=== PATIENT | female | born 1970 | race Caucasian/White ===

== ENCOUNTER 2017-11-05 21:11 | Emergency (ER) | payer OTHER ==
[2017-11-05 21:24] VITALS: BP 129/81
[2017-11-05] MEDS ORDERED: Ondansetron TAB* 4 MG PO PRN (21:46)
[2017-11-05] MEDS ORDERED: Ondansetron TAB* 4 MG PO ONE (21:51)
--- NOTE | 2017-11-05 21:52 | UC ---
Abdominal Pain Female HPI - HPI Summary HPI Summary: 47 yo WF c/o right sided mid abd pain radiating at times to the epigastrium x 3 days associated with nausea and chills and worsening post-pradially. Has h/o GB disease in the family- daughter had cholecystectomy at age 28. 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 R ankle cyst removed Jun 2012. cataract sugery bilateral eyes - Family History Known Family History: Positive: Hypertension - Social History Alcohol Use: None Substance Use Type: None Smoking Status (MU): Current Every Day Smoker Type: Cigarettes Amount Used/How Often: 3/4 PPD When Did the Patient Quit Smoking/Using Tobacco: 3/4 PACK/DAY Review of Systems Constitutional: Chills Skin: Negative Eyes: Negative ENT: Negative Respiratory: Negative Cardiovascular: Negative Gastrointestinal: Abdominal Pain, Nausea Genitourinary: Negative Motor: Negative Neurovascular: Negative Musculoskeletal: Negative Neurological: Negative Psychological: Negative Is Patient Immunocompromised?: No All Other Systems Reviewed And Are Negative: Yes Physical Exam Triage Information Reviewed: Yes Appearance: Well-Nourished Vital Signs: Initial Vital Signs Temp 36.4 C 11/05/17 21:16 Pulse 80 11/05/17 21:16 Resp 16 11/05/17 21:16 BP 129/81 11/05/17 21:16 Pulse Ox 100 11/05/17 21:16 Eye Exam: Normal ENT Exam: Normal Dental Exam: Normal Neck exam: Normal Neck: Positive: 1 Respiratory Exam: Normal Cardiovascular Exam: Normal Abdomen Description: Positive: Soft, Other: - TTP right mid-abd. Negative: CVA Tenderness (R), Distended, Guarding Musculoskeletal Exam: Normal Neurological Exam: Normal Psychological Exam: Normal Skin Exam: Normal Abd Pain Female Course/Dx - Course Course Of Treatment: pt to return to UC for RUQ UC tomorrow for GB eval - Differential Dx/Diagnosis Provider Diagnoses: Choledocholithiasis Discharge - Discharge Plan Condition: Stable Disposition: HOME Prescriptions: Ondansetron TAB* [Zofran 4 MG Tab*] 4 mg PO Q6H PRN 5 Days #20 tab PRN Reason: Nausea Patient Education Materials: Cholecystitis (ED) Referrals: Jorge Duran MD [Primary Care Provider] - Additional Instructions: Can come back to urgent care tomorrow for abdominal ultrasound
[2017-11-05] MEDS ORDERED: Ondansetron ODT TAB* 4 MG ONE (21:55)
== END 2017-11-05 21:50 | disposition home or self-care (01) ==
LOC: UCEAST 21:11
DX: K80.50 Calculus of bile duct without cholangitis or cholecystitis without obstruction (principal); G43.909 Migraine, unspecified, not intractable, without status migrainosus; Z90.710 Acquired absence of both cervix and uterus; F17.210 Nicotine dependence, cigarettes, uncomplicated
CPT/HCPCS: 99212; A9270-GY; G0463

== ENCOUNTER 2017-11-06 12:40 | Emergency (ER) | payer OTHER ==
[2017-11-06] MEDS ORDERED: Morphine INJ* 2 MG/ML 1 ML CARPUJECT IV ONE (14:29)
--- NOTE | 2017-11-06 14:30 | ED ---
Abdominal Pain/Female - HPI Summary HPI Summary: 47 female presents to ED with complaints of RUQ pain that began a few days ago and has been worsening over the past day. Patient states she was concerned for her gallbladder, as she was seen yesterday at however waited to have further work up. States last night she also began vomiting. Has been nauseous and had 2 episodes of vomiting. Denies any blood. Denies urinary and genitalia symptoms. Has been unable to eat/drink due to nausea. States it hurts worse when taking a deep breath. Does have some trouble breathing due to pain. No radiation of pain. Denies fever/chills and chest pain. FHx significant for cholecystitis. Has had appendectomy, c section and full hysterectomy for abdominal surgeries. Described as a dull ache that worsens and becomes sharp at times. No other complaints. Admits to cigarette use, denies alcohol and drug use. LBM was this morning and normal. Admits to GERD and ulcer history however denies symptoms feeling like those in the past. No recent trauma or injury. 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 Negative: Fever, Cough, Back Pain, Constipation, Blood in Stool, Urinary Symptoms, Vaginal Bleeding, Vaginal Discharge Allergies/Adverse Reactions: Allergies Allergy/AdvReac Type Severity Reaction Status Date / Time sucralfate [From Carafate] Allergy See Comment Verified 11/06/17 17:36 zonisamide [From Zonegran] Allergy See Comment Verified 11/06/17 17:36 PMH/Surg Hx/FS Hx/Imm Hx Endocrine/Hematology History: Denies: Hx Anticoagulant Therapy, Hx Diabetes GI History: Reports: Hx Gastroesophageal Reflux Disease - OK ON DAILY MED, Hx Ulcer - stomach (hx) Sensory History: Reports: Hx Contacts or Glasses - GLASSES Denies: Hx Hearing Aid Opthamlomology History: Reports: Hx Contacts or Glasses - GLASSES Neurological History: Reports: Hx Migraine - OCC. [place] Psychiatric History: Reports: Hx Anxiety - Surgical History Surgery Procedure, Year, and Place: [facility]. 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 R ankle cyst removed Jun 2012. cataract sugery bilateral eyes Hx Anesthesia Reactions: No - Immunization History Immunizations Up to Date: Yes Infectious Disease History: No Infectious Disease History: Denies: History Other Infectious Disease, Traveled Outside the [place] in Last 30 Days - Family History Known Family History: Positive: Hypertension - Social History Alcohol Use: None Substance Use Type: Reports: None Smoking Status (MU): Heavy Every Day Tobacco Smoker Type: Cigarettes Amount Used/How Often: 3/4 PPD Review of Systems Constitutional: Negative Cardiovascular: Negative Respiratory: Negative, Other - "trouble breathing due to pain at times" Positive: Abdominal Pain, Vomiting, Nausea Musculoskeletal: Negative Skin: Negative Neurological: Negative All Other Systems Reviewed And Are Negative: Yes Physical Exam Triage Information Reviewed: Yes Vital Signs On Initial Exam: Initial Vitals Temp Pulse Resp BP Pulse Ox 97.6 F 81 20 141/84 99 11/06/17 12:42 11/06/17 12:42 11/06/17 12:42 11/06/17 12:42 11/06/17 12:42 Vital Signs Reviewed: Yes Appearance: Positive: Well-Appearing, Well-Nourished, Pain Distress - mild to moderate, Obese Skin: Positive: Warm, Skin Color Reflects Adequate Perfusion, Dry. Negative: Cold, Erythema @ Head/Face: Positive: Normal Head/Face Inspection Eyes: Positive: Conjunctiva Clear ENT: Positive: Pharynx normal Neck: Positive: Supple, Nontender Respiratory/Lung Sounds: Positive: Clear to Auscultation, Breath Sounds Present. Negative: Rales, Rhonchi, Wheezes Cardiovascular: Positive: Normal, RRR, Pulses are Symmetrical in both Upper and Lower Extremities. Negative: Murmur, Rub Abdomen Description: Positive: Soft, Other: - + muprhys, RUQ tnederness on palpation. Negative: Bruit, CVA Tenderness (R), CVA Tenderness (L), Distended, Guarding, McBurney's Point Tenderness Bowel Sounds: Positive: Present Musculoskeletal: Positive: Normal, Strength/ROM Intact Neurological: Positive: Normal, Sensory/Motor Intact, Alert, Oriented to Person Place, Time Diagnostics - Vital Signs Vital Signs Temp Pulse Resp BP Pulse Ox 11/06/17 12:42 97.6 F 81 20 141/84 99 - Laboratory Result Diagrams: 11/06/17 16:03 11/06/17 16:03 Lab Statement: Any lab studies that have been ordered have been reviewed, and results considered in the medical decision making process. - CT cta chest/abd CT Interpretation: No Acute Changes - no acute chest or abdomen CT findings CT Interpretation Completed By: Radiologist - Ultrasound No standard instances Ultrasound Interpretation: No Acute Changes - 1. NORMAL EXAMINATION OF THE GALLBLADDER. 2. FINDINGS SUGGESTIVE OF FATTY INFILTRATION OF THE LIVER Ultrasound Interpretation Completed By: Radiologist Re-Evaluation - Re-Evaluation First Eval Re-Evaluation Time: 15:30 Change: Improved - had relief from pain medication. patient updated on plan, labs and agrees Abdominal Pain Fem Course/Dx - Course Course Of Treatment: labs obtained and unremarkable. urinlaysis obtained and showed trace of blood otherwise unremarkable. given morphine for pain. US obtained of gallbladder and negative. lipase negative. denies GERD/gastritis like symptoms. pain improved with morphine. Concern for respiratory etiology due to patient's symptoms being in RUQ. CTA obtained to rule out PE concern, pnuemonia and of abdomen to rule out other etioloy such as constipation/renal calculi. CTA was completely negative. Unknown source of patients pain. Aware of worsening signs and symptoms to watch out for. Follow up with PCP. Watch diet as it may be GERD or duodenal ulcer - Diagnoses Differential Diagnosis: Positive: Constipation, Gall Bladder Disease, Renal Colic, Other - PE, pneumonia, GERD, duodenal ulcer Provider Diagnoses: RUQ abdominal pain Discharge - Discharge Plan Condition: Good Disposition: HOME Patient Education Materials: Abdominal Pain (ED) Referrals: Jorge Duran MD [Primary Care Provider] - Additional Instructions: Your pain is not caused by any surgical emergency Drink small amounts of fluid as tolerated Use nausea medication as needed When able to eat follow BRAT diet: Bananas, rice, applesauce, toast Take Tylenol for pain as needed every 6 hours Follow up with primary within 5 days Return to ED if develop any new or worsening symptoms
--- NOTE | 2017-11-06 15:16 | RAD ---
INDICATION: Right upper quadrant pain. COMPARISON: There are no prior studies available for comparison. TECHNIQUE: Multiple real-time images of the right upper quadrant were obtained. FINDINGS: The gallbladder appear normal. No gallbladder wall thickening or pericholecystic fluid is present. No intra or extrahepatic ductal distention is present. The common bile duct measured 0.4 cm in diameter. The liver is normal in size and increased in echogenicity. No significant focal abnormality is seen. The pancreas is partially obscured by overlying bowel gas. No ductal distention is seen. The right kidney is normal in size without evidence for hydronephrosis. IMPRESSION: 1. NORMAL EXAMINATION OF THE GALLBLADDER. 2. FINDINGS SUGGESTIVE OF FATTY INFILTRATION OF THE LIVER.
[2017-11-06 16:20] LABS: ABS Basophils 0 10^3/ul (0-0.2); ABS Eosinophils 0.2 10^3/ul (0-0.6); ABS Lymphocytes 2.9 10^3/ul (1.0-4.8); ABS Monocytes 0.5 10^3/ul (0-0.8); ABS Nucleated RBC 0 10^3/ul; Eosinophil % 2.7 % (0-6); Hematocrit 42 % (35-47); Hemoglobin 14.6 g/dl (12.0-16.0); Lymphocyte % 38.5 % (25-47); Mean Corpuscular HGB Conc 34 g/dl (31-36); Mean Corpuscular Hemoglobin 32 pg (27-31); Mean Corpuscular Volume 92 fL (80-97); Mean Platelet Volume 8 um3 (7.4-10.4); Nucleated Red Blood Cells % 0; Platelet Count 235 10^3/ul (150-450); Red Blood Count 4.63 10^6/ul (4.0-5.4); Red Cell Distribution Width 14 % (10.5-15); White Blood Count 7.6 10^3/ul (3.5-10.8)
[2017-11-06 16:26] LABS: Urine Appearance Clear; Urine Blood 1+ (Negative); Urine Color Yellow; Urine Ketones Negative (Negative); Urine Protein Negative (Negative); Urine Specific Gravity 1.006 (1.010-1.030); Urine Urobilinogen Negative (Negative)
[2017-11-06 16:33] LABS: EGFR Non-African American 87.9 (>60)
[2017-11-06] MEDS ORDERED: Iohexol 350* (CONTRAST) 500 ML MDV IV ONE (18:16)
--- NOTE | 2017-11-06 18:36 | RAD ---
INDICATION: Right upper quadrant pain. Complex sonogram negative for acute cholecystitis. COMPARISON: Gallbladder sonogram same date TECHNIQUE: Axial source images were obtained from the thoracic inlet to the level the hemidiaphragms utilizing CT angiographic technique and administration of 100 mL Omnipaque 350 . Coronal and sagittal reconstructed images were acquired. CHEST FINDINGS: Neck/thyroid: The visualized neck to include the thyroid appear normal. Chest wall: There are no acute abnormalities of the bony thorax or chest wall. There is no supraclavicular, infraclavicular, or axillary lymphadenopathy. Lungs : There are no pulmonary parenchymal masses or infiltrates. The pulmonary interstitium appears normal. There are no endobronchial lesions. Cardiomediastinal structures: The heart is normal in size. There is no pericardial effusion. There is no evidence of aortic aneurysm or dissection. There is no CT evidence of pulmonary embolic disease. There is no mediastinal or hilar adenopathy. The esophagus appears normal. Pleura : There are no pleural-based masses or effusions. ABDOMINAL/PELVIC FINDINGS: Liver: The liver is normal in size. There are no masses. There is no ductal dilatation. Gallbladder: There are no calcified gallstones. There is no evidence of wall thickening or pericholecystic fluid. Spleen: The spleen is normal in size. There are no masses. Pancreas: There is no evidence of pancreatic mass or ductal dilatation. Adrenal glands: There is no evidence of adrenal mass. Kidneys: The kidneys are normal in size and position. There are prompt nephrograms and there is prompt excretion bilaterally. There are no renal parenchymal masses. There is no evidence of nephrolithiasis. Adenopathy: There is no evidence of adenopathy by size criteria. Fluid collections: There are no free or localized fluid collections. Vessels:The aorta and IVC appear normal GI tract: The noncontrast CT appearance the visualized upper and lower GI tract are normal. Abdominal soft tissues: The extraperitoneal abdominal soft tissues appear normal.. Osseous structures: There are no acute osseous findings. IMPRESSION: NO ACUTE CT FINDINGS. NO CT EVIDENCE OF ACUTE PULMONARY EMBOLIC DISEASE. NO CT ABNORMALITIES OF THE ABDOMEN.
[2017-11-06 19:17] VITALS: BP 112/68
== END 2017-11-06 19:16 | disposition home or self-care (01) ==
LOC: ED 12:40
DX: R10.11 Right upper quadrant pain (principal); K21.9 Gastro-esophageal reflux disease without esophagitis; F17.210 Nicotine dependence, cigarettes, uncomplicated; Z88.8 Allergy status to other drugs, medicaments and biological substances
CPT/HCPCS: 36415; 71275; 74160; 76705; 80053; 81003; 81015; 83605; 83690; 85025; 86140; 86850; 86900; 86901; 96374; 99282; J2270; Q9967

== ENCOUNTER 2023-05-01 06:21 | Inpatient (IN) ==
[~2023-05-01 06:21] MED LIST: BUPIVACAINE **LIPOSOME/PF 13.3 MG/ML (266MG/ 20ML) VIAL (RESTRICTED) INFIL ONE; Buffered Lidocaine 1% SYRIN 1 ml INTRADERM ONE; Lactated Ringers 1000 ml BAG 1,000 ML IV SCH
[2023-05-01] MEDS ORDERED: Tranexamic Acid 1 GM/100ML BAG 2,000 MG/200 ML BAG IV ONE (06:31)
[2023-05-01] MEDS ORDERED: ceFAZolin 2 GM in NS PREMIX 2 GM/100 ML BAG IVPB ONE (06:31)
[2023-05-01] MEDS ORDERED: Ropivacaine 5 MG/ML 20 ML VIAL 0.5% (100 MG) ONE (07:40)
[2023-05-01] MEDS ORDERED: Lidocaine 1% MPF 5 ML VIAL ONE (07:40)
[2023-05-01] MEDS ORDERED: Propofol 10 MG/ML 20 ML BTL ONE ×3 (08:04→10:49)
[2023-05-01] MEDS ORDERED: fentaNYL 100 mcg/2 ml 50 MCG/ML VIAL ONE ×2 (08:04→11:44)
[2023-05-01] MEDS ORDERED: Lidocaine 2% PF 5 ML VIAL ONE (08:04)
[2023-05-01] MEDS ORDERED: Midazolam 2 mg/2 ml VIAL 1 mg/ml 2 ml VIAL (2 mg) ONE (08:04)
[2023-05-01] MEDS ORDERED: Bupivacaine 0.25% SDV 30 ML ONE (08:37)
[2023-05-01 08:39] LABS: Rapid COVID-19 Molecular Undetected (Undetected)
[2023-05-01] MEDS ORDERED: Levalbuterol 0.63MG/3ML NEB UNIT OF USE INH PRN (09:00)
[2023-05-01] MEDS ORDERED: Naloxone 0.4 mg VIAL 0.4 mg/ml 1 ml VIAL IV PRN (09:00)
[2023-05-01] MEDS ORDERED: HYDROmorphone 1 MG/1 ML SYRINGE IV PRN (09:00)
[2023-05-01] MEDS ORDERED: Ondansetron 4 mg VIAL 2 MG/ML 2 ml VIAL IV PRN ×2 (09:00→11:18)
[2023-05-01] MEDS ORDERED: Magnesium Hydroxide LIQ 30 ML UDC PO PRN (11:18)
[2023-05-01] MEDS ORDERED: Lactulose 30 ml UDC PO PRN (11:18)
[2023-05-01] MEDS ORDERED: Ondansetron ODT 4 mg TAB 4 MG TAB PO PRN (11:18)
[2023-05-01] MEDS: fentaNYL 100 mcg/2 ml 50 MCG/ML VIAL IV PRN ×2 (11:47→12:19)
[2023-05-01] MEDS: Morphine 2 MG/ML SYRINGE IV PRN ×2 (13:30→20:28)
[2023-05-01] MEDS: Lactated Ringers 1000 ml BAG 1,000 ML IV SCH ×2 (13:30→23:53)
[2023-05-01] MEDS ORDERED: HYDROmorphone 1 MG/1 ML SYRINGE IV SLOW PU ONE (14:06)
[2023-05-01] MEDS: ceFAZolin 1 GM ADVAN 1 GM in NS 0.9% 50 ML 50 ML IVPB SCH (16:58)
[2023-05-01] MEDS: Magnesium Hydroxide LIQ 30 ML UDC PO SCH (20:28)
[2023-05-01] MEDS ORDERED: Nicotine GUM 4MG FRUIT FLAVOR PO PRN (20:49)
[2023-05-01] MEDS ORDERED: DULoxetine DR 60 mg CAP PO SCH (21:00)
[2023-05-02] MEDS: ceFAZolin 1 GM ADVAN 1 GM in NS 0.9% 50 ML 50 ML IVPB SCH ×2 (01:48→08:34)
[2023-05-02 07:17] LABS: Hematocrit 36.6 % (35-45); Hemoglobin 12.6 g/dL (11.5-14.3); Mean Platelet Volume 8.5 fL (7.5-11.2); Platelet Count 221 10^3/uL (150-450)
[2023-05-02 07:40] LABS: Calcium 9.2 mg/dL (8.6-10.3); Creatinine, Serum 0.66 mg/dL (0.51-0.95); Magnesium 1.9 mg/dL (1.9-2.7); Potassium 3.9 mmol/L (3.5-5.0); eGFR CKD-EPI 104.2 (>60)
[2023-05-02] MEDS: Magnesium Hydroxide LIQ 30 ML UDC PO SCH (08:34)
[2023-05-02] MEDS ORDERED: Vitamin THERAPEUTIC TAB PO SCH (09:00)
[2023-05-02 10:29] VITALS: BP 160/79
== END 2023-05-02 13:05 | disposition home or self-care (01) | DRG 470 ==
LOC: OR 06:21 → SSU 06:21 → OBSVTOIN 11:18
PROVIDERS: ADMIT Orthopaedic Surgery Sports Medicine; ATTEND Orthopaedic Surgery Sports Medicine